=== PATIENT | male | born 1970 | race Caucasian/White ===

== ENCOUNTER → 2019-03-11 | Emergency (ER) | payer OTHER ==
[~2019-03-11] VITALS: Ht 170.2 cm; Wt 90.7 kg
[~2019-03-11] MED LIST: BENADRYL ALLERG25 MG PO; BENADRYL25 MG/STRI PO; LOSARTAN POTASS25 MG; MEDROL4 MG PO; MILLIPRED5 MG PO; MONTELUKAST SODI4 MG; SIMVASTATIN40 MG
== END | disposition left against medical advice (07) ==
LOC: ER 17:24
DX: Z53.20 Procedure and treatment not carried out because of patient's decision for unspecified reasons (principal)